=== PATIENT | male | born 1955 | race Caucasian/White ===

== ENCOUNTER 2019-04-05 03:14 | Emergency (ER) | payer BC ==
[2019-04-05] MEDS ORDERED: NS 0.9% 1000 ML** 1,000 ML IV ONE (03:20)
--- NOTE | 2019-04-05 03:31 | ED ---
Altered Mental Status - HPI Summary HPI Summary: The patient is a 63-year-old male arriving via ambulance to [facility] for hypothermia and confusion tonight. The patient had been found outside by EMS tonight after getting a call to his house. The patient was lying on the ground in front of his neighbors house and appeared to have been crawling on the ground instead of walking. There are abrasions on his hands and knees. The patient told EMS that he had not been inside since lunchtime yesterday, although they note that the patient was not alert to time. In the ED, the patient is more alert and oriented X2. EMS note vital signs of tachycardia at 110 bpm, RR 27-28 rpm, temp repoted as low tympanic by EMS. Upon arrival, rectal temperature taken, reported at 93.8F. He is shivering. Aching symptoms rated 8/10 in severity. PMHx: HTN, gout, bilateral cataracts. Former smoker, no EtOH, no substance use. Medications reviewed. Allergies noted. poor historian. - History Of Current Complaint Chief Complaint: EDExposureHeatCold Stated Complaint: HYPOTHERMIA PER EMS Time Seen by Provider: 04/05/19 03:20 Hx Obtained From: Patient, EMS Onset/Duration: Unknown, Still Present Timing: Lasting Days Severity Initially: Moderate Severity Currently: Moderate Character: Confusion Aggravating Factor(s): Other - exposure to the elements - freezing temps Alleviating Factor(s): Nothing - Allergies/Home Medications Allergies/Adverse Reactions: Allergies Allergy/AdvReac Type Severity Reaction Status Date / Time No Known Allergies Allergy Verified 12/15/15 15:18 PMH/Surg Hx/FS Hx/Imm Hx Cardiovascular History: Reports: Hx Hypertension - ON MEDS Denies: Other Cardiovascular Problems/Disorders Respiratory History: Denies: Other Respiratory Problems/Disorders GI History: Denies: Other GI Disorders Musculoskeletal History: Reports: Other Musculoskeletal History - GOUT Sensory History: Reports: Hx Cataracts - YI CAT, Hx Contacts or Glasses - GLASSES Denies: Hx Hearing Aid Opthamlomology History: Reports: Hx Cataracts - YI CAT, Hx Contacts or Glasses - GLASSES - Surgical History Surgical History: Yes Surgery Procedure, Year, and Place: 2010 CATARACT RIGHT [facility] Hx Anesthesia Reactions: No - Social History Alcohol Use: None Hx Substance Use: No Substance Use Type: Reports: None Hx Tobacco Use: Yes Smoking Status (MU): Former Smoker - Additional Comments History Additional Comments: hypertension, gout, bilateral cataracts Review of Systems - ROS Summary Review of Systems Summary: Home Medications Medication Instructions Recorded Confirmed Type Allopurinol TAB* [Zyloprim TAB*] 300 mg PO QAM 02/19/12 12/15/15 History Losartan/Hydrochlorothiazide 50 mg PO DAILY 04/30/13 12/15/15 History [Hyzaar 50/12.5 mg] Positive: Other - hypothermic Neurological/Mental Status: Other - mild confusion All Other Systems Reviewed And Are Negative: Yes Physical Exam - Summary Physical Exam Summary: General: Well-developed, Well-nourished male. Patient is shivering. Has went pants and socks on upon arrival. No acute distress. HEENT: Normocephalic, Atraumatic. Eyes: Conjuctiva normal, PERRL. Oropharynx: Clear, mucous membranes moist, (-) exudates. Neck: Soft, FROM, (-) lymphadenopathy, (-) thyromegaly, (-) JVD. Cardiovascular: Normal sinus rhythm, (-) murmur. Lungs: Clear to auscultation bilaterally (-) wheezes, (-) rales, (-) rhonchi. Abdomen: Soft, non-tender, non-distended, (-) organomegaly, normal bowel sounds. Back: (-) CVA tenderness Extremities: No edema. Skin: Significant erythema and abrasions on knees bilaterally, Abrasions and minor lacerations on the hands bilaterally, dry, (-) rash. Neuro: Opens eyes to voice, Follows commands. Alert and Oriented x3, moves all extremities equally. Normal strength, normal sensation. Psychiatric: Unable to assess. GCS: 15. Triage Information Reviewed: Yes Vital Signs On Initial Exam: Initial Vitals Temp Pulse Resp BP Pulse Ox 93.8 F 108 22 143/72 100 04/05/19 03:19 04/05/19 03:19 04/05/19 03:19 04/05/19 03:04/05/19 03:19 Vital Signs Reviewed: Yes - [place] Coma Scale Best Eye Response: 4 - Spontaneous Best Motor Response: 6 - Obeys Commands Best Verbal Response: 5 - Oriented Coma Scale Total: 15 Procedures - Sedation Patient Received Moderate/Deep Sedation with Procedure: No Diagnostics - Vital Signs Vital Signs Temp Pulse Resp BP Pulse Ox 04/05/19 03:19 93.8 F 108 22 143/72 100 - Laboratory Result Diagrams: 04/05/19 09:35 04/05/19 03:47 Lab Statement: Any lab studies that have been ordered have been reviewed, and results considered in the medical decision making process. - CT Brain CT CT Interpretation Completed By: Radiologist Summary of CT Findings: Impression: No acute intracranial findings. Dr. Griffith has reviewed this report. Cervical Spine CT CT Interpretation Completed By: Radiologist Summary of CT Findings: Impression: 1. No acute fracture involving the cervical vertebral bodies or posterior elements. 2. No pathologic subluxation. 3. Multilevel degenerative cervical disc disease and facet disease. No significant central canal stenosis. No significant bony neural foraminal narrowing. . Dr. Griffith has reviewed this report. Chest/Abd/Pel CT CT Interpretation Completed By: Radiologist Summary of CT Findings: Impression: Chest: No acute findings. Abdomen/Pelvis: 1. No acute abdominal findings. No evidence of a laceration or contusion of the liver, spleen, pancreas or kidneys. 2. Cholelithiasis. 3. Small bubble of air located in the anterior aspect of lateral lumen. This most likely is related to the Dias catheter. Cannot exclude the possibility of a gas-forming cystitis. Dr. Griffith has reviewed and interpreted this report. - EKG 0426 Cardiac Rate: Other Rate - 107 BPM EKG Rhythm: Atrial Fibrillation Summary of EKG Findings: EKG at 0426 reveals atrial fibrillation with rate of 107 BPM, no STEMI. This EKG was reviewed and interpreted by Dr. Griffith. 0615 Cardiac Rate: Tachycardia - 106 BPM EKG Rhythm: Sinus Tachycardia Summary of EKG Findings: EKG at 0615 reveals sinus tachycardia with rate of 106 BPM, no STEMI. This EKG was reviewed and interpreted by Dr. Griffith. Re-Evaluation - Re-Evaluation First Eval Re-Evaluation Time: 06:10 Comment: Plan for repeat trop and EKG Second Eval Re-Evaluation Time: 06:35 Change: Improved Comment: Temp of 99F, bear hugger taken off, plan for admission Altered Mental Statu Course/Dx - Course Course Of Treatment: 63 year old male brought in by EMS after found outside of neighbors house on ground. very cold weather. unsure how long he was really outside or why. erythema found on knees and hands like he had been crawling on ground. core temp 93.8 upon arrival with rectal temp. dias with temp probe placed. patient with significant shivering, he is immediately taken out of all clothes, pants and sock were wet. warmed fluids given. bare hugger placed. difficult to understand his speech. thorough workup including trauma scans completed. troponin initially mildly elevated at .08. WBC greater than 20. anion gap 14, carbon dioxide low.trauma scans negative. patients core temperature increased steadily to normal and bare hugger was d/cd. repeat troponin pending, patient accepted for admission by medicine. - Diagnoses Provider Diagnoses: Hypothermia, Encephalopathy, Elevated troponin - Provider Notifications Discussed Care Of Patient With: Aba Mcneill - hospitalist Time Discussed With Above Provider: 06:45 Instructed by Provider To: Other - I discussed the patients case with Dr. Mcneill , who accepts the patient for admission. Discharge ED - Sign-Out/Discharge Documenting (check all that apply): Patient Departure - Patient accepted for admission by Dr. Mcneill. - Discharge Plan Condition: Stable Disposition: TRANS HIGHER LVL OF CARE FAC Referrals: Fran Vilchis MD [Primary Care Provider] - - Billing Disposition and Condition Condition: STABLE Disposition: Trans Higher Lvl of Care Fac - Attestation Statements Document Initiated by Norma: Yes Documenting Scribe: Kate Jenkins Provider For Whom Norma is Documenting (Include Credential): Dr. Jenn Griffith MD Scribe Attestation: Kate Galindo scribed for Dr. Jenn Griffith MD on 04/06/19 at 0016. Scribe Documentation Reviewed: Yes Provider Attestation: The documentation as recorded by the Kate harding accurately reflects the service I personally performed and the decisions made by me, Dr. Jenn Griffith MD Status of Scribe Document: Viewed
[2019-04-05 03:52] LABS: ABS Basophils 0.1 10^3/ul (0-0.2); ABS Lymphocytes 0.6 10^3/ul (1.0-4.8); ABS Monocytes 1.4 10^3/ul (0-0.8); Hematocrit 42 % (42-52); Hemoglobin 14.3 g/dL (14.0-18.0); Lymphocyte % 3.1 %; Mean Corpuscular HGB Conc 35 g/dL (31-36); Mean Corpuscular Hemoglobin 34 pg (27-31); Mean Corpuscular Volume 98 fL (80-94); Platelet Count 215 10^3/uL (150-450); Red Blood Count 4.22 10^6 /uL (4.18-5.48); Red Cell Distribution Width 13 % (10-15); White Blood Count 20.1 10^3/uL (3.5-10.8)
[2019-04-05] MEDS ORDERED: Lorazepam PYXIS KEY PRN ×4 (03:54→13:14)
[2019-04-05] MEDS ORDERED: LORazepam INJ* 2 MG/ML 1 ML VIAL IV PUSH ONE ×4 (03:54→13:14)
[2019-04-05 03:55] LABS: Urine Appearance Cloudy; Urine Bilirubin Negative (Negative); Urine Blood 2+ (Negative); Urine Color Yellow; Urine Glucose 1+(50 mg/dL) (Negative); Urine Ketones 1+ (Negative); Urine Nitrite Negative (Negative); Urine Protein 1+(30 mg/dL) (Negative); Urine Specific Gravity 1.019 (1.010-1.030); Urine Urobilinogen Negative (Negative)
[2019-04-05] MEDS ORDERED: Lorazepam PYXIS KEY ONE ×4 (03:56→13:27)
[2019-04-05 04:02] LABS: Urine Bacteria Absent (Absent); Urine Red Blood Cell Trace(0-2/hpf) (Absent); Urine White Blood Cell Absent (Absent)
[2019-04-05 04:09] LABS: ALT 16 U/L (7-52); AST 39 U/L (13-39); Albumin 4.5 g/dL (3.2-5.2); Albumin/Globulin Ratio 1.6 (1-3); Alkaline Phosphatase 58 U/L (34-104); Anion Gap 14 mmol/L (2-11); BUN/Creatinine Ratio 22.5 (8-20); Blood Urea Nitrogen 23 mg/dL (6-24); CO2 Carbon Dioxide 16 mmol/L (22-32); Chloride 104 mmol/L (101-111); EGFR Non-African American 73.5 (>60); Globulin 2.8 g/dL (2-4); Glucose 68 mg/dL (70-100); Potassium 4.6 mmol/L (3.5-5.0); Sodium 134 mmol/L (135-145); Total Protein 7.3 g/dL (6.4-8.9)
[2019-04-05 04:11] LABS: Urine Benzodiazepine Screen None Detected (None Detect); Urine Opiates Screen None Detected (None Detect)
[2019-04-05 04:17] LABS: Troponin I 0.08 ng/mL (<0.03)
[2019-04-05 04:28] LABS: INR 1.09 (0.82-1.09)
[2019-04-05 04:36] LABS: Alcohol < 10 mg/dL (<10)
[2019-04-05] MEDS ORDERED: Iohexol 300* (CONTRAST) 10 ML SDV IV ONE (05:20)
[2019-04-05 07:14] LABS: Troponin I 0.38 ng/mL (<0.03)
[2019-04-05] MEDS ORDERED: Acetaminophen TAB* 325 MG PO PRN (08:05)
[2019-04-05] MEDS ORDERED: Thiamine INJ* 100 MG, Folic Acid IV* 1 MG, Multiple Vitamin IV ADULT* 10 ML in NS 0.9% ... IV ONE (08:09)
[2019-04-05 08:58] LABS: Troponin I 0.57 ng/mL (<0.03)
[2019-04-05] MEDS ORDERED: Enoxaparin(*) 40 MG/0.4 ML SYR SUBCUT SCH (09:00)
[2019-04-05] MEDS ORDERED: Multivitamins/Minerals TAB PO SCH (09:00)
[2019-04-05] MEDS ORDERED: Thiamine INJ* 100 MG/ML 2 ML VIAL IM ONE (09:15)
[2019-04-05 09:19] LABS: Creatine Kinase 2646 U/L (10-223)
--- NOTE | 2019-04-05 09:31 | ED ---
Progress - Progress Note Progress Note: At 09 the Hospitalist, Dr. Francine MD, called and reported that the pt had to be transferred in order to receive a constant EEG per neurology. The pt was signed out to Dr. Flakito Richmond DO, from Dr. Margarita Escamilla MD, in order to transfer the pt for a constant EEG. - Results/Orders Results/Orders: MRI: Motion artifact degrades the images with age-appropriate atrophy. No restriction of diffusion is noted. Likely chronic ischemic White matter change is present. ED physician has reviewed this report. Re-Evaluation - Re-Evaluation First Eval Re-Evaluation Time: 09:34 Change: Unchanged Comment: Pt will receive a repeated WBC in order to R/O an underlying possible infection given his elevated temperature. Second Eval Re-Evaluation Time: 06:35 Change: Improved Comment: Temp of 99F, bear hugger taken off, plan for admission Course/Dx - Course Course Of Treatment: At 09 the Hospitalist, Dr. Francine MD, called and reported that the pt had to be transferred in order to receive a constant EEG per neurology. The pt was signed out to Dr. Flakito Richmond DO, from Dr. Margarita Escamilla MD, in order to transfer the pt for a constant EEG. Transfer process was initiated at 0930. Consult at 1033: Dr. Escamilla, Hospitalist, stated that the physician accepting the pt stated that he wanted a LP before transfer. Consult at 1037: Dr. Brock, neurology, was consulted to discuss the pt 's care and possible admission due to the length of time that a transfer would take. Dr. Brock stated that he would be able to be present in the ED in 2 taz hours. Lumbar puncture started at 1123, the pt was put in a lateral decubitis position. 1% lidocaine was used as local anaesthesia. MRI shows: Motion artifact degrades the images with age-appropriate atrophy. No. restriction of diffusion is noted. Likely chronic ischemic White matter change is present. ED physician has reviewed this report. Lumbar puncture started at 1114, the pt was put in a lateral decubitis position. 1% lidocaine was used as local anaesthesia. There were 3 attmpts with a 22 and 25 guage needle. Unfortunately the pt was unable to remain in a still position and there was no good placement of the LP to successfully draw fluid. Dr. Brock, neurology, was consulted at 1206 and informed of the current condition. He recommended either general sedation or inquiring about the transfer status again. Several attempts at LP performed without success. Unable to get patient in ideal position. Attempted lying followed by sitting. Spinal needle kept hitting bone. No CSF obtained. Upon further discussion with the patient's son, patient is a heavy alcohol consumer, up to a case of beer daily, reportedly stops drinking during upcoming PCP appointments. Given overall clinical picture, question possibility of DTs. Son said patient was hallucinating earlier today. Pt was accepted to [facility] ED by Dr. Moya, ED physician, at 1228. His Dx includes hypothermia, encephalopathy, and elevated troponin. - Diagnoses Provider Diagnoses: Hypothermia, Encephalopathy, Elevated troponin - Provider Notifications Discussed Care Of Patient With: Margarita Escamilla Time Discussed With Above Provider: 09:26 Instructed by Provider To: Transfer Discharge ED - Sign-Out/Discharge Documenting (check all that apply): Patient Departure - transfer , Receiving Sign-Out Receiving patient FROM: Margarita Escamilla - Discharge Plan Condition: Stable Disposition: TRANS HIGHER LVL OF CARE FAC Referrals: Fran Vilchis MD [Primary Care Provider] - - Billing Disposition and Condition Condition: STABLE Disposition: Trans Higher Lvl of Care Fac - Attestation Statements Document Initiated by Norma: Yes Documenting Scribe: Dylon Al Provider For Whom Scribe is Documenting (Include Credential): Flakito Richmond DO [place] Attestation: Dylon Galindo scribed for Flakito Richmond DO on 04/05/19 at 1316. Scribe Documentation Reviewed: Yes Provider Attestation: The documentation as recorded by the Dylon harding accurately reflects the service I personally performed and the decisions made by , Flakito Richmond DO Status of Scribe Document: Viewed Procedures - Sedation Patient Received Moderate/Deep Sedation with Procedure: No - Lumbar Puncture 1114 Position: Lateral Decubitus Anesthesia Used: 1.0% Lido Spinal Needle Used: 22 Gauge, Other - 25 guage neele Lumbar Puncture Note: Lumbar puncture started at 1114, the pt was put in a lateral decubitis position. 1% lidocaine was used as local anaesthesia. There were 3 attmpts with a 22 and 25 guage needle. Unfortunately the pt was unable to remain in a still position and there was no good placement of the LP to successfully draw fluid.
[2019-04-05 09:43] LABS: ABS Lymphocytes 0.6 10^3/ul (1.0-4.8); ABS Monocytes 0.8 10^3/ul (0-0.8); ABS Neutrophils 11.3 10^3/ul (1.5-7.7); Hematocrit 38 % (42-52); Hemoglobin 13.2 g/dL (14.0-18.0); Lymphocyte % 4.6 %; Mean Corpuscular HGB Conc 35 g/dL (31-36); Mean Corpuscular Hemoglobin 34 pg (27-31); Mean Corpuscular Volume 97 fL (80-94); Mean Platelet Volume 7.3 fL (7.4-10.4); Platelet Count 194 10^3/uL (150-450); Red Blood Count 3.93 10^6 /uL (4.18-5.48); Red Cell Distribution Width 13 % (10-15); White Blood Count 12.7 10^3/uL (3.5-10.8)
[2019-04-05 09:50] LABS: TSH (Thyroid Stimulating Horm) 1.81 mcIU/mL (0.34-5.60)
[2019-04-05] MEDS ORDERED: LORazepam TAB(*) 1 MG PO SCH (10:00)
[2019-04-05 10:01] LABS: Folate 16.67 ng/mL (>3.99)
[2019-04-05] MEDS ORDERED: Lidocaine 1% MPF ** 5 ML VIAL INJ ONE (10:34)
--- NOTE | 2019-04-05 10:51 | HP ---
HISTORY AND PHYSICAL: ADDENDUM: I spoke with Dr. Brock of Neurology who tells me that we do not have EEG coverage this week and the patient ultimately needs an EEG. For this reason , he will be transferred to an outside hospital who has EEG coverage. He also added meningitis to the differential and recommended a lumbar puncture. I have communicated this to the ER providers. [id number]/[facility] #: [id number] MAGDALENO
[2019-04-05] MEDS ORDERED: D5LR 1000 ML BAG* 1,000 ML IV SCH (11:00)
--- NOTE | 2019-04-05 11:40 | HP ---
TWO ADDENDUMS ARE NOW INCLUDED ON THIS REPORT CC: Dr. Vilchis.* HISTORY AND PHYSICAL: DATE OF ADMISSION: 04/05/19 - EMERGENCY DEPT TIME OF ADMISSION: 8.a.m. PRIMARY CARE PHYSICIAN: Dr. Vilchis. CHIEF COMPLAINT: Found outside. HISTORY OF PRESENT ILLNESS: This is a 63-year-old man with a history of hypertension and gout who presents to the emergency department after his neighbor found him crawling outside in the middle of the night. Of note, the temperature last night was approximately -5 degrees. In the emergency department, Mr. Guidry was unable to provide a history and when he arrived, his rectal temperature was 93.8 degrees. In the ED, he was warmed and a workup included labs and a CT brain, chest, abdomen, and pelvis, which were unremarkable. We were called and asked to consider admission. I came to see Mr. Guidry and again he is unable to report any history to me. He does not know where he is and cannot recall anything about yesterday, going outside or arriving to the emergency department. He currently denies pain, shortness of breath, or recent illness. I contacted his daughter Rere. He was able to tell me that he is a heavy drinker, he drinks approximately a case of beer per day or an entire box of wine , and he has a doctor's appointment coming up and he tends to quit before doctors' appointments. Rere lives in [place], but she talks to him regularly. She last spoke with him on Sunday and she says that lately his speech has been a little bit different, which she thought may have been related to recent hearing aids, but noticed that he repeats things that they had just talked about. She said he had no complaints on Sunday and seemed to otherwise be in his usual state of health. She reports that Kenton' mom lives nearby and Rere's brother, Osvaldo also lives nearby and we can contact them if needed. Osvaldo's phone number is [phone]. PAST MEDICAL HISTORY: As per his chart from Internal Medicine; gout, hypertension, and sensorineural hearing loss with recent hearing aids. His daughter adds alcohol use disorder. HOME MEDICATIONS: 1. Allopurinol 300 mg daily. 2. Losartan/hydrochlorothiazide 50/12.5 mg daily. SOCIAL HISTORY: He lives alone in [place]. 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 According to his daughter, he drinks approximately a case of beer per day or an entire box of wine. REVIEW OF SYSTEMS: Mostly unable to be obtained due to the patient's mental status; however, he does deny any pain, shortness of breath, chest pain, nausea , vomiting, or recent illness. PHYSICAL EXAMINATION GENERAL: Alert, disheveled, middle-aged man in no distress. VITAL SIGNS: Temperature was 93.8 on arrival to the ED, it is currently 99.7 via Davis probe; heart rate 107; respiratory rate 32; pulse ox 99% on room air; blood pressure 125/77. HEENT: His pupils are 4 mm bilaterally and equally reactive to light. His extraocular muscles are intact. His oral mucosa is dry. NECK: No JVP or adenopathy. LUNGS: Clear bilaterally. CHEST: He is mildly tachycardic with no murmurs. ABDOMEN: He has a ventral hernia. No tenderness. No distention. His liver is not palpable. EXTREMITIES: His hands are brightly erythematous. His knees are also erythematous with excoriations on both knees. He has no edema or rashes. NEUROLOGIC: He is oriented x0, though he is quite alert and is able to focus on our conversation. He is able to name most objects. 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 His strength is 5/5 in all extremities. He has trouble following simple commands and pronator drift is unable to be tested. He is tremulous. He has poor coordination and his feet are inverted and plantarflexed though he is able to dorsiflex them again with difficulty following instructions. LABORATORY DATA: White blood cells 20.1, hemoglobin 14.3, platelets 215, INR 1.09. Sodium 134, potassium 4.6, chloride 104, bicarb 16, anion gap 14, lactic acid 1.2, glucose 68, total bilirubin 1.3, troponin 0.08 and 0.38. Serum alcohol is less than 10. The rest of the urine tox is negative. Brain CT: No acute intracranial findings. Cervical spine CT: No acute fracture involving the cervical vertebral bodies or posterior elements. No pathologic subluxation. Multilevel degenerative cervical disk disease and facet disease. No significant central canal stenosis. No significant bony neuroforaminal narrowing. Chest, abdomen, and pelvis CT: The chest shows no acute findings. Abdomen and pelvis shows no acute abnormal findings. No evidence of a laceration or contusion of the liver, spleen, pancreas, or kidneys; cholelithiasis, and a small bubble of air located in the anterior aspect lateral lumen. This most likely is related to the Davis catheter, cannot exclude the possibility of a gas forming cystitis. EKG shows sinus tachycardia with left axis deviation, widened QRS at 124, possible Qs in [address] or T-wave changes otherwise. ASSESSMENT AND PLAN: This is a 63-year-old man with a history of hypertension and alcohol use disorder who presents to the emergency department after being found in [id number] weather crawling in his neighborhood. 1. Hypothermia. He has been appropriately rewarmed in the emergency department. 2. Found outside. The etiology of him being found outside remains unclear; however, after speaking with his daughter I am suspicious about alcohol withdrawal syndrome knowing that he often cuts back on alcohol with upcoming doctor's appointments. His CT brain is negative, but certainly there is a clear neurologic process that contributed to his disorientation and possibly why he made the decision to go outside in the middle of the night. I am consulting Neurology and I am working it up further with a B12, CK, TSH, RPR, and folic acid. I am also treating him with a banana bag in the emergency department. Neurologic causes are highest on my differential; however, cardiac causes should also be included. We will continue to trend his troponins and his EKGs. Seizure and CVA are possibilities and I suspect he will need MRI and possibly an EEG depending on neurology's recommendation. 3. Elevated troponin. This could be the primary cause of his presentation; however, I am more suspicious it is secondary and a type 2 non-ST segment elevation myocardial infarction. I will continue to trend his troponins and get another EKG. 4. Hypoglycemia. I am giving him a banana bag now followed by D5 and I will put him on fingersticks. 5. Leukocytosis. I suspect this is reactive. I do not see any overt evidence of infection. 6. Hypertension. His antihypertensives are on hold. 7. DVT prophylaxis. Lovenox. 8. Diet. N.p.o. until a swallow evaluation. 9. Mr. Guidry is full code. His daughter is to remain his person to contact. ADDENDUM NO.1: I spoke with Dr. Brock of Neurology who tells me that we do not have EEG coverage this week and the patient ultimately needs an EEG. For this reason, he will be transferred to an outside hospital who has EEG coverage. He also added meningitis to the differential and recommended a lumbar puncture. I have communicated this to the ER providers. ADDENDUM NO.2: I spoke with the transfer center at [facility] and they recommend an LP and a carboxyhemoglobin prior to discharge. I agree with these recommendations and I have communicated this with our ER attending and I am awaiting these results. [id number]/[facility] #: [id number] #: [id number] #: [id number] MAGDALENO
--- NOTE | 2019-04-05 11:40 | HP ---
HISTORY AND PHYSICAL: ADDENDUM: I spoke with the transfer center at [facility] and they recommend an LP and a carboxyhemoglobin prior to discharge. I agree with these recommendations and I have communicated this with our ER attending and I am awaiting these results. [id number]/[facility] #: [id number] MTDD
[2019-04-05] MEDS ORDERED: Lidocaine 1% MPF ** 5 ML VIAL ONE (11:52)
[2019-04-05 12:37] LABS: Urine Appearance Clear; Urine Bilirubin Negative (Negative); Urine Blood 3+ (Negative); Urine Color Yellow; Urine Glucose Negative (Negative); Urine Ketones 2+ (Negative); Urine Nitrite Negative (Negative); Urine Protein Negative (Negative); Urine Specific Gravity 1.039 (1.010-1.030); Urine Urobilinogen Negative (Negative)
[2019-04-05 12:48] LABS: Urine Bacteria Absent (Absent); Urine Red Blood Cell 3+(>10/hpf) (Absent); Urine White Blood Cell Trace(0-5/hpf) (Absent)
[2019-04-05 13:49] VITALS: BP 100/59
[2019-04-06] MEDS ORDERED: Multivitamins/Minerals TAB PO SCH (09:00)
[2019-04-06] MEDS ORDERED: Thiamine TAB* 100 MG TAB PO SCH (09:00)
[2019-04-06] MEDS ORDERED: Folic Acid TAB* 1 MG PO SCH (09:00)
== END 2019-04-05 13:41 | disposition short-term general hospital (02) ==
LOC: ED 03:14
DX: T68.XXXA Hypothermia, initial encounter (principal); G93.40 Encephalopathy, unspecified; X31.XXXA Exposure to excessive natural cold, initial encounter; E16.2 Hypoglycemia, unspecified; D72.829 Elevated white blood cell count, unspecified; I10 Essential (primary) hypertension; Z87.891 Personal history of nicotine dependence; Z79.899 Other long term (current) drug therapy
CPT/HCPCS: 36415; 70450; 70551; 71260; 72125; 74177; 80053; 80307; 80320; 81003; 81015; 82140; 82375; 82550; 82607; 82746; 83605; 84443; 84484; 85025; 85610; 86780; 87086; 93005; 96361; 96374; 96375; 96376; 99285; G0480; J2060; J3411; Q9967

== ENCOUNTER 2019-04-16 09:08 | Inpatient (IN) | payer MEDICARE, BC ==
[2019-04-16] MEDS ORDERED: Oxazepam CAP* 10 MG PO PRN (16:46)
[2019-04-16] MEDS ORDERED: Polyethylene Glycol 3350* 17 GM PACKET PO PRN (16:46)
[2019-04-16] MEDS: Enoxaparin(*) 40 MG/0.4 ML SYR SUBCUT SCH (19:05)
--- NOTE | 2019-04-16 20:14 | HP ---
CC: Dr. Fran Vilchis * HISTORY AND PHYSICAL: DATE OF ADMISSION: 04/16/19 PRIMARY CARE PROVIDER: Fran Vilchis MD ATTENDING PHYSICIAN: Sarah Portillo MD * (dictated by MAN Hernandez). CHIEF COMPLAINT: 1. Frostbite. 2. Encephalopathy. HISTORY OF PRESENT ILLNESS: Mr. Guidry is a 63-year-old male with past medical history of hypertension, gout, alcohol use disorder, who presented to the ER on 04/05/19 and was subsequently transferred to [facility] for treatment of frostbite and alcoholic encephalopathy. The patient was transferred with encephalopathy and an EEG was obtained and was within normal limits. The patient was started on ceftriaxone, vancomycin, ampicillin for possible meningitis. These medications were discontinued after negative lumbar puncture returned. The patient received NG tube feedings from 04/05/19 to 04/15/19 and then began to eat on his own. He requires pureed diet with nectar thick liquids at this time. For his frostbite, he worked with the burn team. He has left 3rd through 5th upper extremity digits, right 3rd upper extremity digit and frostbite on bilateral knees. His dressings were changed prior to discharge and recommendations are to discontinue dressings on . If they need further treatment and remain unhealed, a wound consult should be obtained; otherwise lotion 4 times a day should be applied to these area per recommendation. At this time, the patient has returned from [facility] to [facility] for planned placement at subacute rehab. The patient is seen in his bed. He states he is feeling well. He denies chest pain, shortness of breath, dizziness , lightheadedness, vision changes, cough, fever, chills, abdominal pain, nausea , vomiting, diarrhea or constipation. He does complain of left shoulder pain, which he notes he has had intermittently for years. He has decreased range of motion in this area, which he also reports chronic. He has no other complaints today. PAST MEDICAL HISTORY: 1. Hypertension. 2. Gout. 3. Sensorineural hearing loss with hearing aids in place. 4. Alcohol use disorder. 5. Recent diagnosis of alcoholic encephalopathy, receiving inpatient treatment from 03/05/19 to 04/16/19. 6. Frostbite, bilateral hands, bilateral knees requiring inpatient treatment from 03/05/19 to 04/16/19 at [facility]. PAST SURGICAL HISTORY: Cataracts. MEDICATIONS: Home medications: 1. Allopurinol 300 mg p.o. daily. 2. Folic acid 1 mg p.o. daily. 3. Losartan/hydrochlorothiazide 50/12.5 one tab p.o. daily. 4. Multivitamin/minerals 1 tab p.o. daily. 5. Oxazepam 10 mg p.o. q.8 hours p.r.n. anxiety. 6. Polyethylene glycol 17 g p.o. daily p.r.n. 7. Ramelteon 8 mg p.o. at bedtime. 8. Thiamine 100 mg p.o. daily. ALLERGIES: No known drug allergies. FAMILY HISTORY: Father at the age of 62 from lung disease. Mother at the age of 75 from natural causes. No family history of CAD, CVA, cancer or diabetes. SOCIAL HISTORY: The patient is a former smoker. He has a 40-pack year smoking history. He drinks approximately one case daily of beer, but has had no alcohol since prior to 04/05/19 admission. 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 He in the event that he is unable to make his own medical decisions , he has appointed his daughter, Rere to be his healthcare proxy. REVIEW OF SYSTEMS: A 14-point review of systems has been performed and all the pertinent positives and negatives are in the HPI. All other systems are negative. PHYSICAL EXAMINATION GENERAL: Mr. Guidry is a well-developed, well-nourished, obese, middle-aged white male, who is sitting up in bed. He appears to be in no acute distress. He has mildly garbled speech, left facial droop, which is reported his baseline. He answers questions appropriately. HEENT: PERRL. EOMI. Hearing is grossly intact. Oral mucous membranes are moist. There are no lesions. Pharynx is clear. The tongue is at midline. Palate elevates symmetrically. PULMONARY: Symmetrical chest expansion. No use of accessory muscles. Clear to auscultation bilaterally without rhonchi, wheeze or rales. CARDIOVASCULAR: Regular rate and rhythm with S1, S2 present. No murmurs, rubs , clicks or gallops. There is no JVD. There is no peripheral edema. ABDOMEN: Obese. Bowel sounds in all quadrants. Soft and nontender to palpation. MUSCULOSKELETAL: Full range of motion in bilateral lower extremities and right upper extremity. Decreased range of motion at the left shoulder due to pain. NEUROLOGIC: The patient is awake. He is alert and oriented x3. Cranial nerves are grossly intact. He moves all of his extremities. SKIN: Dressing is in place to bilateral hands, bilateral knees. The left 3rd through 5th and right 3rd digit in the upper extremities are wrapped with an overlying gauze on bilateral hands. Sensation appears to be intact. The patient is able to move all of his digits. ASSESSMENT AND PLAN: Mr. Guidry is a 63-year-old male with a past medical history of hypertension, alcohol use disorder, recent admission to [facility] from 04/05/19 to 04/16/19 for alcoholic encephalopathy, and frostbite, who presented to [facility] today for admission due to need for placement at a subacute rehab. The patient will be admitted for: 1. Inability to care for self. The patient is unable to care for himself at home. Physical therapy and occupational therapy have been ordered. Case management will assist in finding acute rehab placement for the patient. 2. Frostbite, bilateral upper extremities, bilateral knees. The patient received recent workup and treatment at [facility] for this. Recommendations are dressing removal on 04/21/19 with lotion 4 times per day unless the wounds are unhealed. If the wounds are unhealed, we should obtain a wound consult. Order has been placed for dressing removal on 04/21/19. 3. Acute metabolic encephalopathy. This is suspected to be due to alcohol use. Lumbar puncture at [facility] was negative for meningitis. This appears to be resolved at this time, although the patient does have a baseline garbled speech, but is alert and oriented x3 with CN intact. 4. Alcohol use disorder. Continue folic acid, thiamine and multivitamin. The patient should be weaned off his oxazepam. He was weaned down to 10 mg p.o. t.i.d. and should further wean within the next few days. 5. Left shoulder pain. The patient reports a history of left shoulder pain and decreased range of motion, which he states is chronic. We will get a left shoulder x-ray as we have none documented here. 6. Hypertension. Continue losartan/HCTZ. 7. Gout. Continue allopurinol. 8. DVT prophylaxis. According to the DVT Risk Assessment, the patient scores 3 , placing him at high risk. He has been started on Lovenox. 9. Code status is full code. TIME SPENT: Approximately 60 minutes was spent on this admission, greater than half of that time spent face to face with the patient obtaining history, performing physical and reviewing the plan of care. The case has been discussed with my attending, Dr. Portillo, who is agreement with the plan of care. MAN PEREZ [id number]/CPS #: [id number] MAGDALENO
[2019-04-16] MEDS ORDERED: Melatonin 3 MG TAB PO ONE (20:59)
[2019-04-16] MEDS ORDERED: Ramelteon (NF) 8 MG TAB PO SCH (21:00)
[2019-04-17 06:24] LABS: Hematocrit 42 % (42-52); Hemoglobin 14.2 g/dL (14.0-18.0); Mean Corpuscular HGB Conc 34 g/dL (31-36); Mean Corpuscular Hemoglobin 33 pg (27-31); Mean Corpuscular Volume 97 fL (80-94); Mean Platelet Volume 8.1 fL (7.4-10.4); Platelet Count 343 10^3/uL (150-450); Red Blood Count 4.29 10^6 /uL (4.18-5.48); Red Cell Distribution Width 14 % (10-15); White Blood Count 8.3 10^3/uL (3.5-10.8)
[2019-04-17 06:51] LABS: Albumin 3.8 g/dL (3.2-5.2); Potassium 3.9 mmol/L (3.5-5.0); Total Bilirubin 0.9 mg/dL (0.2-1.0)
[2019-04-17 06:57] LABS: Albumin/Globulin Ratio 1.2 (1-3); BUN/Creatinine Ratio 20.2 (8-20); EGFR African American 97.8 (>60); EGFR Non-African American 80.8 (>60); Globulin 3.2 g/dL (2-4)
[2019-04-17 07:25] LABS: ABS Basophils 0.1 10^3/ul (0-0.2); ABS Eosinophils 0.3 10^3/ul (0-0.6); ABS Lymphocytes 1.7 10^3/ul (1.0-4.8); ABS Monocytes 1.1 10^3/ul (0-0.8); ABS Neutrophils 5.2 10^3/ul (1.5-7.7); Eosinophil % 3.1 %
[2019-04-17] MEDS ORDERED: Thiamine TAB* 100 MG TAB PO SCH (09:00)
[2019-04-17] MEDS: Losartan TAB* 25 MG PO SCH (10:12)
[2019-04-17] MEDS: Allopurinol TAB* 300 MG PO SCH (10:12)
[2019-04-17] MEDS: Folic Acid TAB* 1 MG PO SCH (10:12)
[2019-04-17] MEDS: Multivitamins/Minerals TAB PO SCH (10:12)
[2019-04-17] MEDS: Hydrochlorothiazide TAB* 25 MG PO SCH (10:12)
--- NOTE | 2019-04-17 13:32 | PN ---
Subjective Date of Service: 04/17/19 Interval History: Mr. Guidry states that he slept well last night. He denies weakness, although PT states that pt displays L sided neglect. He is intermittently confused and has difficulty answer questions at times. No other complaints today. Spoke with daughter, Rere, to discuss patient's baseline. Apr 05, mumbling speech, which had improved since then, but is still with slurred speech. He has reportedly had L facial, drooling since , which worsened until , and then improved. Daughter reports that there was weakness and lack of rotation in L arm. She reports no L arm injury or surgery in the past. She reports that he had full ROM of L arm prior to this. Previously received neuro work up, including MRI brain, which were unremarkable. Objective Active Medications: Acetaminophen (Tylenol Tab*) 650 mg PO Q4H PRN PRN Reason: mild to moderate pain Allopurinol (Zyloprim Tab*) 300 mg PO QAM [facility] Last Admin: 04/17/19 10:12 Dose: 300 mg Enoxaparin Sodium (Lovenox(*)) 40 mg SUBCUT Q24H [facility] Last Admin: 04/16/19 19:05 Dose: 40 mg Folic Acid (Folvite Tab*) 1 mg PO DAILY [facility] Last Admin: 04/17/19 10:12 Dose: 1 mg Hydrochlorothiazide (Hydrodiuril Tab*) 12.5 mg PO DAILY [facility] Last Admin: 04/17/19 10:12 Dose: 12.5 mg Losartan Potassium (Cozaar Tab*) 50 mg PO DAILY [facility] Last Admin: 04/17/19 10:12 Dose: 50 mg Melatonin (Melatonin) 3 mg PO BEDTIME [facility] Multivitamins/Minerals (Theragran/Minerals Tab*) 1 tab PO DAILY [facility] Last Admin: 04/17/19 10:12 Dose: 1 tab Oxazepam (Serax Cap*) 10 mg PO Q8H PRN PRN Reason: ANXIETY Polyethylene Glycol/Electrolytes (Miralax (17 Gm Dose Jose)) 17 gm PO DAILY PRN PRN Reason: CONSTIPATION Thiamine HCl (Vitamin B-1 Tab*) 100 mg PO DAILY [facility] Last Admin: 04/17/19 10:13 Dose: 100 mg Vital Signs: Temp Pulse Resp BP Pulse Ox 98 F 55 18 136/74 98 04/17/19 02:54 04/17/19 02:54 04/17/19 02:54 04/17/19 02:54 04/17/19 02:54 Oxygen Devices in Use Now: None Appearance: Mr. Guidry is an overweight 63 yom who is sitting in chair picking at bandages. He is intermittently confused, but responds to questions. He has noted dysarthria, which is reportedly his baseline. Eyes: No Scleral Icterus, PERRLA, - - L facial droop Ears/Nose/Mouth/Throat: NL Teeth, Lips, Gums, Clear Oropharnyx, Mucous Membranes Moist Neck: NL Appearance and Movements; NL JVP, Trachea Midline Respiratory: Symmetrical Chest Expansion and Respiratory Effort, Clear to Auscultation Cardiovascular: NL Sounds; No Murmurs; No JVD, RRR, No Edema Abdominal: NL Sounds; No Tenderness; No Distention, No Hepatosplenomegaly Extremities: No Edema, No Clubbing, Cyanosis, - - L arm with decreased ROM Neurological: NL Muscle Strength and Tone, - - alert; oriented to person, place only Result Diagrams: 04/17/19 06:01 04/17/19 06:01 Microbiology and Other Data: Microbiology 04/16/19 19:15 Nasal Screen MRSA (PCR) - Final Nasal Mrsa Not Detected Assess/Plan/Problems-Billing Assessment: 63 Pmhx HTN, gout, recent hospitalization at [facility] for gout, encephalopathy presents from [facility] for [facility] placement. - Patient Problems (1) Frostbite Comment: -recent admission to [facility] 04/05 - 04/16 -wounds managed by Burn team at [facility] who recommend dressing removal 04/20 -if healed, QID lotion; if unhealed, wound consult (2) Encephalopathy Comment: -received workup at [facility], who suspected alcohol-induced -LP at [facility] negative for meningitis -patient has had some improvement since presentation/transfer, but continues to have a L sided deficit, dysarthria, L facial droop; this has reportedly been present since 04/04, according to daughter -CT, MRI 04/05 unremarkable -neuro consulted for further recommendations -likely Wernicke's -IV thiamine -MRI brain -check B12, ammonia, and methymalonic acid -start seroquel -meanwhile, protective mits placed, as patient continues to attempt bandage removal -patient will likely need [facility] placement (3) Left shoulder pain Comment: -L shoulder pain; patient states this is chronic, while daughter states no previous injury -XR shows subluxation L shoulder -orthopedics consulted (4) Alcohol abuse Comment: -no EtOH since prior to 04/05, but pt unable to say when last drink was -continue folic acid, thiamine, multivitamin -monitor, but no apparent need for WAM currently -wean off benzos (5) HTN (hypertension) Comment: -SBP 110-120's -continue losartan, HCTZ (6) Gout Comment: -continue allopurinol (7) DVT prophylaxis Comment: -enoxaparin (8) Full code status Status and Disposition: Inpatient. Discharge when stable. Will likely need [facility].
[2019-04-17] MEDS ORDERED: Lorazepam PYXIS KEY ONE (15:00)
[2019-04-17] MEDS ORDERED: LORazepam TAB(*) 0.5 MG PO SCH (16:00)
[2019-04-17] MEDS: Thiamine INJ* 100 MG in NS 0.9% 50 ML* 50 ML IV SCH (17:29)
[2019-04-17] MEDS: Enoxaparin(*) 40 MG/0.4 ML SYR SUBCUT SCH (17:30)
[2019-04-17] MEDS: LORazepam TAB(*) 0.5 MG PO SCH (17:30)
--- NOTE | 2019-04-17 17:50 | CONS ---
NEUROLOGY CONSULTATION: DATE OF CONSULT: 04/17/19 LOCATION: He is an inpatient in room 418. REFERRING PROVIDER: MAN Hernandez CHIEF COMPLAINT: Encephalopathy. HISTORY OF PRESENT ILLNESS: Kenton Guidry is a 63-year-old man who was transferred from [facility] to [facility] for admission and disposition on 04/16/19. He originally presented to our emergency department on 04/05/19 when he was found by neighbors and then perhaps police crawling around in subzero weather outside in his neighborhood. The history from the records is that he has history of alcoholism including drinking up to a case of beer per day. I later spoke to his son Osvaldo who came to visit and related that his father was becoming more cognitively impaired over time and confirmed heavy alcohol intake. Prior history was apparently obtained via phone conversations with family. He had frostbite and was encephalopathic and was transferred to [facility]. He was at [facility] from until he was transferred here on 04/16/19. There are hundreds of pages of record sent from [facility], but most of them are administrative and vital signs and such. However, in reviewing those records, he was admitted on 02/02/19 and his discharge was on 04/16/19. Discharge summary includes a discharge diagnosis of acute metabolic encephalopathy, frostbite of fingers of the left hand, frostbite of bilateral lower extremities. The history and hospital course describes his being discovered out in subzero weather and being transferred to [facility]. During his hospitalization, there were multiple attempts for lumbar puncture and eventually that was achieved. However, I was not able to find cell count, but I was able to find some other results. The discharge summary also includes that he was given intravenous thiamine and folic acid and looking through the records he was encephalopathic throughout his hospital stay. One paragraph in the discharge summary indicates that Neurology was consulted in the emergency department who opinioned that his encephalopathy was due to alcohol withdrawal. He received cefepime, vancomycin, and acyclovir in addition to thiamine in the emergency department. An EEG was said to be performed the following day and indicative of diffuse encephalopathy, but I could not find the formal report in the records. The records also indicate he had received 250 mg of intravenous thiamine every day and was subsequently transitioned to oral thiamine at discharge. It took a while to get an NG tube in him and they had to consult ENT to have it done. He had an MRI scan done here before he was transferred down there and I reviewed it. There is quite a bit of motion artifact and it reveals some atrophy, but no focal abnormalities that I can see and our radiologist interpreted as motion artifact, they graded the images with age appropriate atrophy. No restriction of diffusion is noted. Likely chronic ischemic white matter changes are present. Review of [facility] Medical records does confirm that he received IV thiamine 250 mg per day as well as 400 mg of IV thiamine once on 04/05/19. He received cefepime and vancomycin as well as acyclovir intravenously for multiple days. He also received ampicillin. Again, I cannot find spinal fluid results in the records, but microbiology notes indicate that there were no organisms or white blood cells seen. [facility] looking for viruses came back negative including herpes simplex virus 1 and 2, Cytomegalovirus PCR, varicella zoster virus PCR, Otilia-Gore virus and human herpesvirus 6 PCRs. Enterovirus panel was also negative. Arbovirus testing on spinal fluid was also carried out and was negative. Looking at older records in our electronic medical records, there is a history and physical from April 2013 when he was admitted for umbilical hernia repair. That record indicates that he had a history of hypertension, impaired fasting glucose, alcohol abuse, and gout. He was on losartan/hydrochlorothiazide and allopurinol at that time. MEDICATIONS: Current medications are reviewed and he is on: 1. Thiamine 100 mg p.o. daily. 2. Oxazepam 10 mg p.o. every 8 hours as needed for anxiety. 3. Losartan 50 mg p.o. daily. 4. HydroDIURIL 12.5 mg p.o. daily. 5. Folic acid 1 mg p.o. daily. 6. Lovenox 40 mg subcutaneous daily. 7. Allopurinol 300 mg p.o. q.a.m. ALLERGIES: According to computer records, he does not have any drug allergies. REVIEW OF SYSTEMS: From the patient is completely unproductive. PHYSICAL EXAM: He is disheveled and clearly extremely confused. Temperature most recently is 98 and he has not had a fever since he has been here this brief admission. Blood pressure is running pretty consistently about 120 to 150 systolic/50 to 70 diastolic. Respiratory rate is 20 and oxygen saturation is 96% on room air. Heart tones are distant, but I do not hear any murmurs. His neck is supple. I do not hear any cervical bruits. He has sialorrhea. Neurological Exam: Pupils react sluggishly from 3 down to 2.5 mm. Eye movements reveal pretty good gaze in the left, but inconsistent gaze to the right. He has a little bit of disconjugate gaze with the right eye little exotropic. He has diminished upward gaze. He can count fingers straight ahead , but I cannot get him to count fingers when present with simultaneous presentation. Facial musculature is symmetric with perhaps bilateral hypomimia. Speech is dysarthric and only intelligible about a third of the time. Motor exam reveals him to be restless and paratonic. He seems to move his limbs symmetrically. He has distal atrophy in feet intrinsics with high arches and hammertoes. Sensory exam is very difficult to assess. He has gloves on his hands because he was picking tubes and dressings. He is areflexic. Plantar responses flexor on the right and equivocal on the left. I do not detect any asterixis or myoclonus, but he is very restless and he does not hold still or follow commands to test with wrist extension. He will occasionally answer a simple question with a one-word answer that makes sense, but most of the time he does not provide meaningful answers to questions or follow commands consistently. LABORATORY DATA: This admission is notable for a CBC which is unremarkable other than MCV of 97. His INR when he presented on 04/05/19 was normal at 1.09. His carbon monoxide level was less than 4% on 04/05/19. Chemistry profile today is fairly unremarkable other than carbon dioxide of 20. His AST is elevated slightly at 43. His ammonia level on 04/05/19 was elevated at 60, creatine kinase was elevated at 2646. He had an elevated troponin level on of 0.57. He had a borderline low vitamin B12 level of 211 on 04/05/19, folate of 16.6, and TSH within normal limits of 1.81. Toxicology screen on was negative including serum alcohol less than 10. Serologies on notable for a negative syphilis IgG. 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 He appears to have ophthalmoplegia and is clearly very encephalopathic. I would recommend getting an MRI with sedation. We may see typical midline deficits along the third ventricle, thalamus, and mammillary bodies in ideal circumstances. I would recommend giving him additional IV thiamine for 3 more days. Recommend checking a vitamin B12 level, methylmalonic acid level, and ammonia. In regards to his medications, I would recommend trying to taper him off benzodiazepines as they can further aggravate cognitive impairment. Recommend switching his oxazepam to lorazepam for at least 6 days at 0.5 mg every 6 hours, then if possible taper it further. I would recommend starting Seroquel, but first checking an EKG and monitoring his QT interval if doses are needed to be increased. He may need a psychiatry consultation for further recommendations regarding behavioral management. I recommend checking an EEG and I put in the order. I will discuss my impression and recommendations with Kenyetta Cloud. [id number]/[facility] #: [id number] MAGDALENO
[2019-04-17] MEDS: QUEtiapine TAB* 25 MG PO SCH (21:26)
[2019-04-17] MEDS: Melatonin 3 MG TAB PO SCH (21:26)
--- NOTE | 2019-04-17 22:15 | CONS ---
ORTHOPEDIC CONSULTATION NOTE: DATE OF CONSULT: 04/17/19 CHIEF COMPLAINT: Left shoulder pain. HISTORY OF PRESENT ILLNESS: Mr. Guidry is a 63-year-old gentleman with alcoholic encephalopathy. The patient was treated on 04/05/19 with alcohol use disorder and frostbite. He was transferred to [facility] and recently transferred back to [facility] [place]. He noted some left shoulder pain intermittently for years. Radiographs showed some question of subluxation and orthopedics was consulted. Today at the time of my consultation with the patient he is combative, confused and not answering questions. He has one on one hospital employee who does not know his history well. He has no family at the bedside. I am obtaining the history mostly from other notes and physical exam is limited today. PAST MEDICAL HISTORY: Hypertension, gout, hearing loss, alcohol use disorder, recent alcoholic encephalopathy with inpatient treatment from 03/05/19 to . Recent frostbite treated at [facility]. PAST SURGICAL HISTORY: Cataract surgery. HOME MEDICATIONS: 1. Allopurinol 300 mg p.o. daily. 2. Folic acid 1 mg p.o. daily. 3. Losartan hydrochlorothiazide 50/12.5 mg p.o. daily. 4. Multivitamin 1 tablet p.o. daily. 5. Oxazepam 10 mg p.o. q.8 hours p.r.n. anxiety. 6. Polyethylene glycol 17 g p.o. daily. 7. Ramelteon 8 mg p.o. q.h.s. 6. Thiamine 100 mg p.o. daily. ALLERGIES: No known drug allergies. FAMILY HISTORY: Paternal lung disease. 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 He lives alone. He has a daughter, Rere who is his healthcare proxy. A 40-pack year smoking history. Drinks 1 case of beer daily. No alcohol since 04/05/19 admission to the hospital. REVIEW OF SYSTEMS: Although 14 point systems review would be performed, the patient is unable to communicate today. PHYSICAL EXAMINATION: Vitals: Temperature 97.8, pulse 60, blood pressure 114/ 62. General: The patient is a well nourished male. He does appear to be distressed and anxious. He is moving all 4 extremities. He has restraints on with pads on his hands. He is not answering questions. He seems to be hallucinating at times. HEENT: Atraumatic, normocephalic. Heart: S1, S2. No obvious arrhythmia, murmurs, rubs, gallops. Lungs: Clear to auscultation in all lung dickinson. Abdomen: Soft, nontender, nondistended. Bowel sounds in 4 quadrants. Left upper extremity: The patient's skin is intact. He has gauze over his hands and fingers, which are not removed today by me. He is unable to take part in motor or sensory exam. He does exhibit some tenderness to palpation with palpation around the left shoulder. There is no erythema or warmth here. I cannot range his shoulder, because he is in restraints. DIAGNOSTIC STUDIES: Labs show white blood cell 8.3, hematocrit 42, platelets of 343. Sodium 138, potassium 3.9, BUN/creatinine 19 and 0.94. Shoulder x-ray showed some rotator cuff arthropathy with superior position of the humeral head on the glenoid. CT scan shows no obvious fracture of the left shoulder. The humeral head is clearly reduced in the glenoid. ASSESSMENT AND PLAN: Mr. Guidry is a 63-year-old gentleman with per report chronic left shoulder pain. He has chronic rotator cuff arthropathy with likely prior rotator cuff tear and chronic arthritic changes. My exam is seriously limited today because of the patient's mental status and recent alcoholic encephalopathy. Orthopedics will be glad to follow along. For now, I would place no restrictions on his shoulder range of motion. He can be weightbearing as tolerated. Left upper extremity with full activities as tolerated. Orthopedics will follow him and he is welcome to follow up as an outpatient after his discharge from the hospital for further shoulder care. Thank you for this orthopedic consultation. [id number]/[facility] #: [id number] MAGDALENO
[2019-04-18] MEDS: LORazepam TAB(*) 0.5 MG PO SCH ×4 (01:58→17:49)
[2019-04-18] MEDS: QUEtiapine TAB* 25 MG PO SCH (08:27)
[2019-04-18] MEDS: Losartan TAB* 25 MG PO SCH (08:27)
[2019-04-18] MEDS: Multivitamins/Minerals TAB PO SCH (08:27)
[2019-04-18] MEDS: Folic Acid TAB* 1 MG PO SCH (08:27)
[2019-04-18] MEDS: Allopurinol TAB* 300 MG PO SCH (08:27)
[2019-04-18] MEDS: Hydrochlorothiazide TAB* 25 MG PO SCH (08:28)
[2019-04-18] MEDS ORDERED: LORazepam INJ* 2 MG/ML 1 ML VIAL IV PUSH ONE (09:00)
[2019-04-18] MEDS ORDERED: Gadoteridol* (CONTRAST) 279.3 MG/ML 10 ML IV ONE (11:53)
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
[2019-04-18] MEDS: Thiamine INJ* 100 MG in NS 0.9% 50 ML* 50 ML IV SCH (16:41)
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
[2019-04-18] MEDS: Enoxaparin(*) 40 MG/0.4 ML SYR SUBCUT SCH (17:56)
--- NOTE | 2019-04-18 20:33 | EEG ---
ELECTROENCEPHALOGRAPHY: DATE OF STUDY: 04/18/19 REFERRING PROVIDER: Dr. Salomon. LOCATION: He is an inpatient in room 418. CLINICAL PROBLEM: Encephalopathy, history of alcoholism. Rule out seizures. MEDICATIONS: Include: 1. Thiamine. 2. Seroquel. 3. Lorazepam. 4. Losartan. REPORT: This 19-channel EEG is remarkable for background rhythms consisting of diffuse mixed theta a nd delta rhythms. Higher-voltage delta rhythms are seen centrally. The patient was described as alirio ke and confused. At times, the patient sleeps and snores with an increase in delta slowing and some poorly formed parasagittal sleep spindles. Activation procedures are not attempted. There are no cl inical events other than movements. There are no focal, lateralized, or epileptiform abnormalities. CLINICAL IMPRESSION: Abnormal EEG due to generalized slowing and disorganization in background rhyth ms consistent with diffuse cerebral dysfunction. There are no focal or epileptiform discharges orquidea guerrero this recording. [id number]/[facility] #: [id number]
[2019-04-18] MEDS: Acetaminophen TAB* 325 MG PO PRN (20:50)
[2019-04-18] MEDS: Melatonin 3 MG TAB PO SCH (20:50)
[2019-04-19] MEDS: LORazepam TAB(*) 0.5 MG PO SCH (00:25)
[2019-04-19] MEDS ORDERED: Magnesium Hydroxide LIQ* 30 ML UDC PO PRN (10:14)
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
[2019-04-19] MEDS: Multivitamins/Minerals TAB PO SCH (10:55)
[2019-04-19] MEDS: Allopurinol TAB* 300 MG PO SCH (10:55)
[2019-04-19] MEDS: Losartan TAB* 25 MG PO SCH (10:56)
[2019-04-19] MEDS: QUEtiapine TAB* 25 MG PO SCH (10:56)
[2019-04-19] MEDS: Senna TAB 8.6 mg* TAB PO SCH (10:56)
[2019-04-19] MEDS: Folic Acid TAB* 1 MG PO SCH (10:56)
[2019-04-19] MEDS: Hydrochlorothiazide TAB* 25 MG PO SCH (10:56)
[2019-04-19] MEDS: Thiamine INJ* 100 MG in NS 0.9% 50 ML* 50 ML IV SCH (15:26)
[2019-04-19] MEDS ORDERED: QUEtiapine TAB* 25 MG PO ONE (17:28)
[2019-04-19] MEDS: Acetaminophen TAB* 325 MG PO PRN (17:37)
[2019-04-19] MEDS: Enoxaparin(*) 40 MG/0.4 ML SYR SUBCUT SCH (17:38)
[2019-04-19] MEDS: Melatonin 3 MG TAB PO SCH (22:42)
[2019-04-20 06:38] LABS: ABS Basophils 0.1 10^3/ul (0-0.2); ABS Eosinophils 0.2 10^3/ul (0-0.6); ABS Lymphocytes 1.5 10^3/ul (1.0-4.8); ABS Monocytes 1.1 10^3/ul (0-0.8); ABS Neutrophils 5.5 10^3/ul (1.5-7.7); Eosinophil % 2.3 %; Hematocrit 42 % (42-52); Hemoglobin 14.8 g/dL (14.0-18.0); Lymphocyte % 18.2 %; Mean Corpuscular HGB Conc 35 g/dL (31-36); Mean Corpuscular Hemoglobin 34 pg (27-31); Mean Corpuscular Volume 96 fL (80-94); Mean Platelet Volume 8.1 fL (7.4-10.4); Platelet Count 394 10^3/uL (150-450); Red Blood Count 4.41 10^6 /uL (4.18-5.48); Red Cell Distribution Width 14 % (10-15); White Blood Count 8.5 10^3/uL (3.5-10.8)
[2019-04-20 06:49] LABS: BUN/Creatinine Ratio 27.6 (8-20); Calcium 9.4 mg/dL (8.6-10.3); EGFR Non-African American 71.1 (>60); Potassium 3.5 mmol/L (3.5-5.0)
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
[2019-04-20] MEDS: Thiamine TAB* 100 MG TAB PO SCH (08:25)
[2019-04-20] MEDS: Losartan TAB* 25 MG PO SCH (08:25)
[2019-04-20] MEDS: Allopurinol TAB* 300 MG PO SCH (08:25)
[2019-04-20] MEDS: Hydrochlorothiazide TAB* 25 MG PO SCH (08:25)
[2019-04-20] MEDS: Folic Acid TAB* 1 MG PO SCH (08:25)
[2019-04-20] MEDS: Multivitamins/Minerals TAB PO SCH (08:26)
[2019-04-20] MEDS: Senna TAB 8.6 mg* TAB PO SCH (08:26)
[2019-04-20] MEDS ORDERED: Pneumococcal *Vac Polyvalent 0.5 ML VIAL IM ONE (09:00)
[2019-04-20] MEDS ORDERED: Influenza VAC *QUAD* 2019-20* 0.5 ML SYRINGE IM ONE (09:00)
[2019-04-20] MEDS ORDERED: QUEtiapine TAB* 25 MG PO ONE (11:00)
[2019-04-20] MEDS: Acetaminophen TAB* 325 MG PO PRN (11:01)
[2019-04-20] MEDS: Enoxaparin(*) 40 MG/0.4 ML SYR SUBCUT SCH (17:08)
[2019-04-20] MEDS: QUEtiapine TAB* 25 MG PO SCH (19:37)
[2019-04-21] MEDS: Melatonin 3 MG TAB PO SCH ×2 (01:17→20:55)
[2019-04-21] MEDS: Hydrochlorothiazide TAB* 25 MG PO SCH (09:37)
[2019-04-21] MEDS: Losartan TAB* 25 MG PO SCH (09:37)
[2019-04-21] MEDS: Thiamine TAB* 100 MG TAB PO SCH (10:23)
[2019-04-21] MEDS: Multivitamins/Minerals TAB PO SCH (10:23)
[2019-04-21] MEDS: Folic Acid TAB* 1 MG PO SCH (10:23)
[2019-04-21] MEDS: QUEtiapine TAB* 25 MG PO SCH ×2 (10:24→20:55)
[2019-04-21] MEDS: Senna TAB 8.6 mg* TAB PO SCH (10:24)
[2019-04-21] MEDS: Allopurinol TAB* 300 MG PO SCH (10:24)
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
[2019-04-21] MEDS: Moisturizing CREAM* 120 GM JAR TOPICAL SCH ×3 (14:20→21:13)
--- NOTE | 2019-04-21 16:40 | PN ---
Progress Note - Progress Note Date of Service: 04/21/19 SOAP: Subjective: []Pt seen at bedside. He has 1:1 staff supervision, he is mildly combative and agitated. No obvious worsening of L shoulder pain. Objective: []Gen: agitated LUE: skin intact. No erythema, edema or tenderness about the L shoulder. Moving elbow, wrist and digits as he combats exam. He is resistant to shoulder movement. Assessment: []L shoulder chronic rotator cuff arthropathy Plan: []WBAT, ROM as tolerated LUE FU Outpatient for further shoulder care Signing off orthopedics. If further concern please re-consult. Vital Signs Temp 98.7 F 04/21/19 15:37 Pulse 70 04/21/19 15:37 Resp 16 04/21/19 15:37 BP 121/77 04/21/19 15:37 Pulse Ox 95 04/21/19 15:37 Intake & Output 04/20/19 04/21/19 04/21/19 18:59 06:59 18:59 Intake Total 220 0 420 Output Total 500 720 Balance -280 0 -300 Intake: Oral 220 0 420 Output: Urine 500 720 Other: Estimated Void Medium Date of Last Bowel [id number] Movement # Bowel Movements 0 0 # Voids 1 Laboratory Last Values WBC 8.5 10^3/uL (3.5-10.8) 04/20/19 06:12 RBC 4.41 10^6 /uL (4.18-5.48) 04/20/19 06:12 Hgb 14.8 g/dL (14.0-18.0) 04/20/19 06:12 Hct 42 % (42-52) 04/20/19 06:12 MCV 96 fL (80-94) H 04/20/19 06:12 MCH 34 pg (27-31) H 04/20/19 06:12 MCHC 35 g/dL (31-36) 04/20/19 06:12 RDW 14 % (10-15) 04/20/19 06:12 Plt Count 394 10^3/uL (150-450) 04/20/19 06:12 MPV 8.1 fL (7.4-10.4) 04/20/19 06:12 Neut % (Auto) 65.0 % 04/20/19 06:12 Lymph % (Auto) 18.2 % 04/20/19 06:12 Hawkins % (Auto) 13.1 % 04/20/19 06:12 Eos % (Auto) 2.3 % 04/20/19 06:12 Baso % (Auto) 1.4 % 04/20/19 06:12 Absolute Neuts (auto) 5.5 10^3/ul (1.5-7.7) 04/20/19 06:12 Absolute Lymphs (auto) 1.5 10^3/ul (1.0-4.8) 04/20/19 06:12 Absolute Monos (auto) 1.1 10^3/ul (0-0.8) H 04/20/19 06:12 Absolute Eos (auto) 0.2 10^3/ul (0-0.6) 04/20/19 06:12 Absolute Basos (auto) 0.1 10^3/ul (0-0.2) 04/20/19 06:12 Absolute Nucleated RBC 0.0 10^3/ul 04/20/19 06:12 Nucleated RBC % 0.0 04/20/19 06:12 Sodium 141 mmol/L (135-145) 04/20/19 06:12 Potassium 3.5 mmol/L (3.5-5.0) 04/20/19 06:12 Chloride 108 mmol/L (101-111) 04/20/19 06:12 Carbon Dioxide 23 mmol/L (22-32) 04/20/19 06:12 Anion Gap 10 mmol/L (2-11) 04/20/19 06:12 BUN 29 mg/dL (6-24) H 04/20/19 06:12 Creatinine 1.05 mg/dL (0.67-1.17) 04/20/19 06:12 Est GFR ( Amer) 86.0 (>60) 04/20/19 06:12 Est GFR (Non-Af Amer) 71.1 (>60) 04/20/19 06:12 BUN/Creatinine Ratio 27.6 (8-20) H 04/20/19 06:12 Glucose 109 mg/dL (70-100) H 04/20/19 06:12 Calcium 9.4 mg/dL (8.6-10.3) 04/20/19 06:12 Total Bilirubin 0.90 mg/dL (0.2-1.0) 04/17/19 06:01 AST 43 U/L (13-39) H 04/17/19 06:01 ALT 36 U/L (7-52) 04/17/19 06:01 Alkaline Phosphatase 50 U/L (34-104) 04/17/19 06:01 Ammonia 52 mcmol/L (16-53) 04/17/19 15:51 Total Protein 7.0 g/dL (6.4-8.9) 04/17/19 06:01 Albumin 3.8 g/dL (3.2-5.2) 04/17/19 06:01 Globulin 3.2 g/dL (2-4) 04/17/19 06:01 Albumin/Globulin Ratio 1.2 (1-3) 04/17/19 06:01 Vitamin B12 522 pg/mL (180-914) 04/17/19 15:51
[2019-04-21] MEDS: Enoxaparin(*) 40 MG/0.4 ML SYR SUBCUT SCH (17:22)
[2019-04-22] MEDS: Folic Acid TAB* 1 MG PO SCH (10:16)
[2019-04-22] MEDS: Thiamine TAB* 100 MG TAB PO SCH (10:16)
[2019-04-22] MEDS: QUEtiapine TAB* 25 MG PO SCH ×2 (10:16→22:17)
[2019-04-22] MEDS: Allopurinol TAB* 300 MG PO SCH (10:17)
[2019-04-22] MEDS: Senna TAB 8.6 mg* TAB PO SCH (10:17)
[2019-04-22] MEDS: Hydrochlorothiazide TAB* 25 MG PO SCH (10:17)
[2019-04-22] MEDS: Multivitamins/Minerals TAB PO SCH (10:17)
[2019-04-22] MEDS: Losartan TAB* 25 MG PO SCH (10:20)
[2019-04-22] MEDS: Moisturizing CREAM* 120 GM JAR TOPICAL SCH ×4 (10:25→22:30)
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
[2019-04-22] MEDS ORDERED: NS 0.9% 1000 ML/HR X 1 BAG (TOTAL 1000 ML) IV ONE (16:15)
[2019-04-22] MEDS: Enoxaparin(*) 40 MG/0.4 ML SYR SUBCUT SCH (17:30)
[2019-04-22] MEDS: Melatonin 3 MG TAB PO SCH (22:17)
[2019-04-23 06:25] LABS: ABS Basophils 0.1 10^3/ul (0-0.2); ABS Eosinophils 0.3 10^3/ul (0-0.6); ABS Lymphocytes 1.9 10^3/ul (1.0-4.8); ABS Monocytes 0.8 10^3/ul (0-0.8); Hematocrit 41 % (42-52); Hemoglobin 14.2 g/dL (14.0-18.0); Lymphocyte % 27.1 %; Mean Corpuscular HGB Conc 35 g/dL (31-36); Mean Corpuscular Hemoglobin 34 pg (27-31); Mean Corpuscular Volume 96 fL (80-94); Mean Platelet Volume 8.1 fL (7.4-10.4); Platelet Count 331 10^3/uL (150-450); Red Blood Count 4.22 10^6 /uL (4.18-5.48); Red Cell Distribution Width 13 % (10-15); White Blood Count 7.1 10^3/uL (3.5-10.8)
[2019-04-23 06:43] LABS: BUN/Creatinine Ratio 37.1 (8-20); Calcium 9.3 mg/dL (8.6-10.3); EGFR African American 56.6 (>60); EGFR Non-African American 46.8 (>60); Potassium 3.6 mmol/L (3.5-5.0)
[2019-04-23] MEDS: Allopurinol TAB* 300 MG PO SCH (08:45)
[2019-04-23] MEDS: QUEtiapine TAB* 25 MG PO SCH (08:50)
[2019-04-23] MEDS: Thiamine TAB* 100 MG TAB PO SCH (08:52)
[2019-04-23] MEDS: Folic Acid TAB* 1 MG PO SCH (08:54)
[2019-04-23] MEDS: Senna TAB 8.6 mg* TAB PO SCH (08:55)
[2019-04-23] MEDS: Moisturizing CREAM* 120 GM JAR TOPICAL SCH ×4 (08:57→21:48)
[2019-04-23] MEDS: Multivitamins/Minerals TAB PO SCH (09:10)
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
[2019-04-23] MEDS: Enoxaparin(*) 40 MG/0.4 ML SYR SUBCUT SCH (17:55)
[2019-04-23] MEDS ORDERED: QUEtiapine TAB* 25 MG PO SCH (21:00)
[2019-04-23] MEDS: Melatonin 3 MG TAB PO SCH (21:48)
[2019-04-24] MEDS: Folic Acid TAB* 1 MG PO SCH (08:38)
[2019-04-24] MEDS: Thiamine TAB* 100 MG TAB PO SCH (08:40)
[2019-04-24] MEDS: Senna TAB 8.6 mg* TAB PO SCH (08:41)
[2019-04-24] MEDS: QUEtiapine TAB* 25 MG PO SCH (08:42)
[2019-04-24] MEDS: Allopurinol TAB* 300 MG PO SCH (08:43)
[2019-04-24] MEDS: Moisturizing CREAM* 120 GM JAR TOPICAL SCH ×2 (08:44→12:52)
[2019-04-24] MEDS: Multivitamins/Minerals TAB PO SCH (09:22)
[2019-04-24 09:48] LABS: BUN/Creatinine Ratio 41.9 (8-20); Calcium 9.3 mg/dL (8.6-10.3); EGFR Non-African American 71.1 (>60); Potassium 3.3 mmol/L (3.5-5.0)
[2019-04-24] MEDS ORDERED: Potassium Chlor TAB* 20 MEQ TAB.ER PO ONE (10:53)
[2019-04-24 10:58] VITALS: BP 139/85
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
== END 2019-04-24 12:38 | disposition swing bed (61) | DRG 421 ==
LOC: MED 14:47
PROVIDERS: ADMIT Internal Medicine; ATTEND Hospitalist
DX: E51.2 Wernicke's encephalopathy (principal); F10.239 Alcohol dependence with withdrawal, unspecified; T33.532D Superficial frostbite of left finger(s), subsequent encounter; T33.531D Superficial frostbite of right finger(s), subsequent encounter; T33 Superficial frostbite; X31.XXXD Exposure to excessive natural cold, subsequent encounter; I10 Essential (primary) hypertension; M10.9 Gout, unspecified; R41.0 Disorientation, unspecified; R47.1 Dysarthria and anarthria; R29.810 Facial weakness; Z74.1 Need for assistance with personal care; M25.512 Pain in left shoulder; E66.9 Obesity, unspecified; M13.812 Other specified arthritis, left shoulder; F10.20 Alcohol dependence, uncomplicated; H49.9 Unspecified paralytic strabismus; H91.90 Unspecified hearing loss, unspecified ear; K11.7 Disturbances of salivary secretion; Z68.29 Body mass index [BMI] 29.0-29.9, adult; Z75.1 Person awaiting admission to adequate facility elsewhere; Z79.899 Other long term (current) drug therapy; Z82.5 Family history of asthma and other chronic lower respiratory diseases; Z87.891 Personal history of nicotine dependence
CPT/HCPCS: 36415; 70553; 80048; 80053; 82140; 82607; 83921; 85025; 87641; 90686; 90732; 93005; 95819; A9270-GY; A9579; J1650; J2060; J3411

== ENCOUNTER 2019-04-24 12:38 | Inpatient (IN) | payer BC ==
[2019-04-24] MEDS ORDERED: Magnesium Hydroxide LIQ* 30 ML UDC PO PRN (14:02)
[2019-04-24] MEDS ORDERED: Polyethylene Glycol 3350* 17 GM PACKET PO PRN (14:02)
[2019-04-24] MEDS: Moisturizing CREAM* 120 GM JAR TOPICAL SCH ×2 (17:20→20:35)
[2019-04-24] MEDS: Enoxaparin(*) 40 MG/0.4 ML SYR SUBCUT SCH (17:51)
[2019-04-24] MEDS: Melatonin 3 MG TAB PO SCH (20:32)
[2019-04-24] MEDS ORDERED: QUEtiapine TAB* 25 MG PO SCH (21:00)
[2019-04-25] MEDS: Allopurinol TAB* 300 MG PO SCH (09:39)
[2019-04-25] MEDS: Moisturizing CREAM* 120 GM JAR TOPICAL SCH ×4 (09:39→21:00)
[2019-04-25] MEDS: Multivitamins/Minerals TAB PO SCH (09:39)
[2019-04-25] MEDS: Thiamine TAB* 100 MG TAB PO SCH (09:39)
[2019-04-25] MEDS: Folic Acid TAB* 1 MG PO SCH (09:39)
[2019-04-25] MEDS: Senna TAB 8.6 mg* TAB PO SCH (09:39)
[2019-04-25] MEDS: QUEtiapine TAB* 25 MG PO SCH ×3 (09:39→20:56)
[2019-04-25] MEDS ORDERED: QUEtiapine TAB* 25 MG PO ONE (11:21)
[2019-04-25] MEDS: Enoxaparin(*) 40 MG/0.4 ML SYR SUBCUT SCH (17:35)
[2019-04-25] MEDS: Melatonin 3 MG TAB PO SCH (20:56)
[2019-04-26] MEDS: Senna TAB 8.6 mg* TAB PO SCH (07:53)
[2019-04-26] MEDS: Folic Acid TAB* 1 MG PO SCH (07:54)
[2019-04-26] MEDS: QUEtiapine TAB* 25 MG PO SCH ×2 (07:54→20:40)
[2019-04-26] MEDS: Allopurinol TAB* 300 MG PO SCH (07:54)
[2019-04-26] MEDS: Thiamine TAB* 100 MG TAB PO SCH (07:55)
[2019-04-26] MEDS: Acetaminophen TAB* 325 MG PO PRN (07:56)
[2019-04-26] MEDS: Moisturizing CREAM* 120 GM JAR TOPICAL SCH ×4 (07:56→20:40)
[2019-04-26] MEDS: Multivitamins/Minerals TAB PO SCH (07:56)
[2019-04-26] MEDS ORDERED: QUEtiapine TAB* 25 MG PO ONE (13:51)
[2019-04-26] MEDS: Enoxaparin(*) 40 MG/0.4 ML SYR SUBCUT SCH (17:18)
[2019-04-26] MEDS: Melatonin 3 MG TAB PO SCH (20:40)
[2019-04-27] MEDS: Multivitamins/Minerals TAB PO SCH (09:33)
[2019-04-27] MEDS: Thiamine TAB* 100 MG TAB PO SCH (09:33)
[2019-04-27] MEDS: Folic Acid TAB* 1 MG PO SCH (09:33)
[2019-04-27] MEDS: Senna TAB 8.6 mg* TAB PO SCH (09:33)
[2019-04-27] MEDS: Allopurinol TAB* 300 MG PO SCH (09:33)
[2019-04-27] MEDS: QUEtiapine TAB* 25 MG PO SCH ×2 (09:33→20:03)
[2019-04-27] MEDS: Moisturizing CREAM* 120 GM JAR TOPICAL SCH ×4 (09:34→23:00)
[2019-04-27] MEDS ORDERED: QUEtiapine TAB* 25 MG PO ONE (11:32)
[2019-04-27] MEDS: Enoxaparin(*) 40 MG/0.4 ML SYR SUBCUT SCH (17:11)
[2019-04-27] MEDS: Acetaminophen TAB* 325 MG PO PRN (17:12)
[2019-04-27] MEDS: Melatonin 3 MG TAB PO SCH (20:11)
[2019-04-27 22:04] LABS: ABS Basophils 0.1 10^3/ul (0-0.2); ABS Eosinophils 0.4 10^3/ul (0-0.6); ABS Lymphocytes 2.1 10^3/ul (1.0-4.8); ABS Neutrophils 6.3 10^3/ul (1.5-7.7); Eosinophil % 4.1 %; Hematocrit 40 % (42-52); Hemoglobin 13.9 g/dL (14.0-18.0); Mean Corpuscular HGB Conc 35 g/dL (31-36); Mean Corpuscular Hemoglobin 33 pg (27-31); Mean Corpuscular Volume 95 fL (80-94); Mean Platelet Volume 8.5 fL (7.4-10.4); Platelet Count 231 10^3/uL (150-450); Red Blood Count 4.22 10^6 /uL (4.18-5.48); Red Cell Distribution Width 13 % (10-15); White Blood Count 9.8 10^3/uL (3.5-10.8)
[2019-04-27] MEDS ORDERED: Haloperidol INJ IV/IM* 5 MG/ML AMP IM ONE (22:20)
[2019-04-27 22:29] LABS: Albumin 3.7 g/dL (3.2-5.2); Albumin/Globulin Ratio 1.2 (1-3); BUN/Creatinine Ratio 20.9 (8-20); Calcium 9.2 mg/dL (8.6-10.3); EGFR African American 81.5 (>60); EGFR Non-African American 67.4 (>60); Globulin 3.1 g/dL (2-4); Potassium 3.8 mmol/L (3.5-5.0); Total Bilirubin 0.8 mg/dL (0.2-1.0); Total Protein 6.8 g/dL (6.4-8.9)
[2019-04-28] MEDS: Folic Acid TAB* 1 MG PO SCH (09:04)
[2019-04-28] MEDS: Allopurinol TAB* 300 MG PO SCH (09:04)
[2019-04-28] MEDS: Thiamine TAB* 100 MG TAB PO SCH (09:04)
[2019-04-28] MEDS: Senna TAB 8.6 mg* TAB PO SCH (09:04)
[2019-04-28] MEDS: Moisturizing CREAM* 120 GM JAR TOPICAL SCH ×4 (09:05→21:11)
[2019-04-28] MEDS: Multivitamins/Minerals TAB PO SCH (09:05)
[2019-04-28] MEDS: QUEtiapine TAB* 25 MG PO SCH ×2 (09:05→18:59)
[2019-04-28] MEDS ORDERED: QUEtiapine TAB* 25 MG PO PRN (11:28)
[2019-04-28] MEDS: Enoxaparin(*) 40 MG/0.4 ML SYR SUBCUT SCH (17:16)
[2019-04-28] MEDS: Melatonin 3 MG TAB PO SCH (21:03)
[2019-04-29] MEDS: Senna TAB 8.6 mg* TAB PO SCH (09:13)
[2019-04-29] MEDS: Multivitamins/Minerals TAB PO SCH (09:13)
[2019-04-29] MEDS: Folic Acid TAB* 1 MG PO SCH (09:13)
[2019-04-29] MEDS: Moisturizing CREAM* 120 GM JAR TOPICAL SCH ×4 (09:13→21:13)
[2019-04-29] MEDS: Thiamine TAB* 100 MG TAB PO SCH (09:13)
[2019-04-29] MEDS: QUEtiapine TAB* 25 MG PO SCH ×2 (09:13→20:44)
[2019-04-29] MEDS: Allopurinol TAB* 300 MG PO SCH (09:13)
[2019-04-29] MEDS: Enoxaparin(*) 40 MG/0.4 ML SYR SUBCUT SCH (18:36)
[2019-04-29] MEDS ORDERED: QUEtiapine TAB* 25 MG PO PRN (18:58)
[2019-04-29] MEDS ORDERED: Haloperidol INJ IV/IM* 5 MG/ML AMP IM ONE (20:30)
[2019-04-29] MEDS: Melatonin 3 MG TAB PO SCH (20:44)
[2019-04-30 06:17] VITALS: BP 130/70
[2019-04-30] MEDS: Folic Acid TAB* 1 MG PO SCH (09:15)
[2019-04-30] MEDS: Thiamine TAB* 100 MG TAB PO SCH (09:15)
[2019-04-30] MEDS: Senna TAB 8.6 mg* TAB PO SCH (09:15)
[2019-04-30] MEDS: Moisturizing CREAM* 120 GM JAR TOPICAL SCH (09:16)
[2019-04-30] MEDS: Multivitamins/Minerals TAB PO SCH (09:16)
[2019-04-30] MEDS: Allopurinol TAB* 300 MG PO SCH (09:16)
[2019-04-30] MEDS: QUEtiapine TAB* 25 MG PO SCH (09:16)
--- NOTE | 2019-04-30 12:41 | DS ---
CC: [facility] * DISCHARGE SUMMARY: DATE OF ADMISSION: To [facility], 04/24/19. DATE OF DISCHARGE: From our facility, 04/30/19. PRIMARY CARE PROVIDER: None. DISPOSITION AT DISCHARGE: [facility]. CONDITION ON DISCHARGE: Stable. DISCHARGE DIAGNOSES: 1. Frostbite. 2. Wernicke's encephalopathy. 3. History of alcoholism. SECONDARY DIAGNOSES: 1. Hypertension. 2. Gout. MEDICATIONS AT DISCHARGE: Include: 1. Allopurinol 300 mg daily. 2. Folic acid 1 mg daily. 3. Melatonin 3 mg at bedtime. 4. Moisturizing cream 1 application 4 times a day to affected fingertips on the left hand. 5. Multivitamin 1 tablet daily. 6. MiraLAX 17 g daily p.r.n. 7. Seroquel 25 mg every 8 hours. The patient is to be given up to 2 doses in a 24- hour period p.r.n. agitation. In addition to that, the patient is on a scheduled Seroquel 25 mg daily in the morning and 50 mg at bedtime. 8. Senna 1 tablet daily p.r.n. 9. Thiamine 100 mg daily. DIAGNOSTIC STUDIES/LAB DATA: Laboratory data during the hospital stay included on 04/27/19 white blood cell count of 9.8, hemoglobin 13.9, hematocrit of 40, and platelets of 231. On 04/27/19, sodium of 140, potassium 3.8, chloride 107, carbon dioxide 25, BUN 23, creatinine 1.10. Liver function is unremarkable. Random glucose level 106. HOSPITALIZATION COURSE: Mr. Guidry was originally hospitalized at our facility from 04/16/19 to 04/24/19, then he was placed on swing bed status on 04/24/19 and remained on swing bed until 04/30/19 when he is being discharged to [facility] for further rehab. Please note that his medical problems started with an admission on 04/05/19 when he was initially seen in our emergency department, noted to be confused, probably seizing. Due to no EEG coverage at our facility, the patient was transferred to [facility] where he was noted to have frostbite on fingers and knees. He was also diagnosed with Wernicke encephalopathy. There were no reported seizures at that point. He was transferred back to our facility on 04/16/19 for further management of social issues. Due to his Wernicke encephalopathy, he was unable to take care of himself. At some point during hospital stay, he had an MRI of the brain which did not reveal any acute processes. He was seen by Neurology at our facility and diagnosed with Wernicke encephalopathy. His EEG was negative for epileptiform discharges. 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 He was seen by psychiatry specialist who noted that patient is not capable of making decisions for himself. He continues to have significant confusion and forgetfulness. He was placed on Seroquel with titration with good results. He still continues to be impulsive. He was placed on swing on 04/24/19 to await for his correction/rehab bed to be available. Today on 01/08, he is being placed to [facility] for rehab. On the day of discharge, he is actually alert and oriented x2. He is forgetful, still impulsive. He is not happy that he is going to rehab. PHYSICAL EXAM: At the time of discharge, blood pressure of 130/70, heart rate of 61 and regular, respiratory rate 18, oxygen saturation 90% on room air, temperature 97.5. General: The patient is a pleasant 63-year-old male, who is not in acute distress. The patient is alert and oriented x3, but forgetful. HEENT: Head: Atraumatic, normocephalic. Eyes: Pupils are equal, reactive to light and accommodation. Oropharynx is clear. Mucosa moist. Neck: Supple. No JVD. No bruits bilaterally. Cardiovascular: Regular rate and rhythm. No murmurs. Respiratory: Clear to auscultation bilaterally. Abdomen: Soft, nontender. Bowel sounds are present in all 4 quadrants. Extremities: There is no edema. Pulses are +2 bilaterally. No clubbing or cyanosis. Please note that the patient has missing 2 fingernails on his left third and fourth finger. There are no open wounds on his skin. The frostbites have healed. Psychiatric Evaluation: The patient is pleasant, cooperative, rather impulsive. The patient is being discharged to [facility] for continuation of his rehabilitation. He is advised to be seen by his primary care provider there within the next 3 days. CONDITION ON DISCHARGE: Stable. DISPOSITION: Discharged to [facility]. Please note that this is a short summary of the patient's hospitalization. Please refer to further medical records for details. [id number]/[facility] #: [id number] MTDD
== END 2019-04-30 12:40 | DRG 862 ==
LOC: MED 12:38
PROVIDERS: ADMIT Hospitalist; ATTEND Internal Medicine
DX: T33.532D Superficial frostbite of left finger(s), subsequent encounter (principal); E51.2 Wernicke's encephalopathy; T33.531D Superficial frostbite of right finger(s), subsequent encounter; T33 Superficial frostbite; F10.20 Alcohol dependence, uncomplicated; I10 Essential (primary) hypertension; Z75.1 Person awaiting admission to adequate facility elsewhere; S43.00 Unspecified subluxation and dislocation of shoulder joint; M10.9 Gout, unspecified; Z79.899 Other long term (current) drug therapy; X31.XXXD Exposure to excessive natural cold, subsequent encounter
CPT/HCPCS: 36415; 80053; 82140; 85025; A9270-GY; J1630; J1650